=== PATIENT | female | born 1955 | race Caucasian/White ===

== ENCOUNTER 2019-07-30 02:41 | Observation (INO) ==
--- OUTSIDE RECORDS SUMMARY | 2019-07-30 02:44 | External Medical Summary | Continuity of Care Document ---
:1955 Author Name Holden Guerra Address Unavailable Unavailable , Care Team Providers Name Role Phone Unavailable Unavailable Unavailable Rachael Franz M.D. Unavailable [email or web address] Case Chris MATHIAS Unavailable [email or web address] Problems ESR Elevated (790.1) Encounter for cosmetic surgery (V50.1) (Z41.1) Abnormal blood chemistry (790.6) (R79.9) Crohn's disease (555.9) (K50.90) Allergies and Adverse Reactions No Known Drug Allergies (Allergy) Medications Multi-Vitamin TABS , M.DRayshawn Refills: 0 Calcium-D TABS , M.DRayshawn Refills: 0 Exldy-Et-Umsa TABS , M.DRayshawn Refills: 0 PEG-3350/Electrolytes 236 GM Oral Solution Reconstitut ed; TAKE DIRECTED. DO Jaswinder Anders Start: 23-Mar-2014 Quantity: 1 Refills: 0 Ibuprofen 800 MG Oral Tablet; TAKE 1 TABLET 3 TIMES DA LARRY WITH FOOD NEEDED. Charlie Franz Start: 10-Oct-2012 Quantity: 90 Refills: 0 diazePAM 5 MG Oral Tablet; TAKE 1 TABLET 3 TIMES DAILY NEEDED. Charlie Franz Start: 15-Jul-2012 Quantity: 1 90 EA Bottle Refills: 3 Remicade SOLCharlie Moreno Refills: 0 Procedures Procedures not documented Immunizations Immunizations not documented Social History - Smoking Status Never smoker Plan of Treatment Planned Observations Planned Goals not documented Results No Known Results Results not documented
[2019-07-30] MEDS ORDERED: SODIUM CHLORIDE 0.9% 500 ML IV SCH (03:00)
[2019-07-30 03:15] LABS: Basophils # (auto) 0.03 K/uL (0-0.2); Basophils % (auto) 0.4 %; Eosinophils # (auto) 0.07 K/uL (0-0.5); Eosinophils % (auto) 0.9 %; Hematocrit (blood only) 35.4 % (37-47); Hemoglobin 11.8 g/dL (12.0-16.0); Immature Granulocytes # (auto) 0.01 K/uL (0.00-0.02); Immature Granulocytes % (auto) 0.1 %; Lymphocytes # (auto) 2.22 K/uL (1.2-3.4); Lymphocytes % (auto) 28.3 %; Mean Corpuscular Hemoglobin 31.9 pg (25-34); Mean Corpuscular Hgb Conc 33.3 g/dL (32-36); Mean Corpuscular Volume 95.7 fL (80-100); Mean Platelet Volume 9.2 fL (7.4-10.4); Monocytes # (auto) 0.45 K/uL (0.11-0.59); Monocytes % (auto) 5.7 %; Neutrophils # (auto) 5.07 K/uL (1.4-6.5); Neutrophils % (auto) 64.6 %; Platelet Count 200 K/uL (130-400); RDW Coefficient of Variation 12.7 % (11.5-14.5); RDW Standard Deviation 43.5 fL (36.4-46.3); White Blood Count 7.85 K/uL (4.8-10.8)
[2019-07-30 03:23] LABS: Alanine Aminotransferase 38 U/L (12-78); Albumin Level 3.4 gm/dl (3.4-5.0); Aspartate Aminotransferase 15 U/L (15-37); Blood Urea Nitrogen 14 mg/dl (7-18); Calcium 8.7 mg/dl (8.5-10.1); Carbon Dioxide 29 mmol/L (21-32); Chloride 102 mmol/L (98-107); Est GFR (African American) 98.3; Est GFR (Non-African American) 84.8; Glucose 137 mg/dl (70-99); Lipase 89 U/L (73-393); Potassium 3.2 mmol/L (3.5-5.1); Sodium 141 mmol/L (136-145)
[2019-07-30 03:25] LABS: Alkaline Phosphatase 57 U/L (45-117); Bilirubin,Total 0.7 mg/dl (0.2-1); Globulin 3.5 gm/dl (2.5-4.0); Partial Thromboplastin Ratio 0.9; Partial Thromboplastin Time 23.2 Seconds (21.0-31.0); Prothrombin Time 10.3 Seconds (9.0-12.0); Total Protein 6.9 gm/dl (6.4-8.2)
[2019-07-30] MEDS ORDERED: ACETAMINOPHEN 1,000 MG/100 ML VIAL IV STA (05:04)
[2019-07-30] MEDS ORDERED: SODIUM CHLORIDE 0.9% 1000ML 1,000 ML IV SCH (05:15)
[2019-07-30] MEDS ORDERED: POTASSIUM CHLORIDE 20 MEQ/15 ML UDC PO STA (06:16)
[2019-07-30 07:57] LABS: Hematocrit (blood only) 31.5 % (37-47); Hemoglobin 10.4 g/dL (12.0-16.0)
--- NOTE | 2019-07-30 08:17 | Emergency Department Note ---
Entered by Dejon Gomes acting as a scribe for Lidia Norris DO History of Present Illness General Chief complaint: Rectal Bleed Stated complaint: RECTAL BLEEDING/SYNCOPE Time Seen by Provider: 07/30/19 02:43 Source: patient History of Present Illness Onset (ago): day(s) (last night) Location: abdomen (rectum) Pain Consistency: + other (persistent) Exacerbated By: + other (rectal bleeding) Associated symptoms: + other (Positive for syncope and chills. Negative for cramping/pain.) The patient is a 63 year old female who presents to the emergency department with complaints of persistent rectal bleeding beginning last night. The patient states that she had an EGD/colonoscopy performed yesterday. She notes that she had multiple polyps removed. She reports that she had a little bit of rectal bleeding at 2200. The patient states that she then went to the bathroom at 2320 and did not have any rectal bleeding. She notes that she then woke up at 0200 and saw bright red blood in the toilet when she went to the bathroom. She reports that she did not have any cramping/pain prior to going to the bathroom. The patient states that she then walked a few steps from the toilet and did not feel well and lost consciousness. Patient woke up spontaneously shortly thereafter, and called 911. She complains of chills after losing consciousness. Per EMS, the patient started getting hypotensive en route to the emergency department. An IV was placed and fluids started and patient's blood pressure came up. The patient notes that she has a history of Crohns disease. She repor ts that she does not take any blood thinners. No prior history of upper GI bleed. No history of peptic ulcer disease. Home Medications Home Medications Medication Instructions Recorded Confirmed Type Valium 5 mg PO HS PRN 07/30/19 07/30/19 History hydrochlorothiazide 12.5 mg PO DAILY 07/30/19 07/30/19 History mesalamine 3 tab PO DAILY 07/30/19 07/30/19 History omeprazole 20 mg PO DAILY 07/30/19 07/30/19 History Allergies Allergy/AdvReac Type Severity Reaction Status Date / Time No Known Allergies Allergy Verified 07/30/19 03:17 Past Med/Surg History Social History Preferred Language: Moroccan Communication Ability: Effective [employer] Required: No Beliefs That Will Affect Care: None Current Living Situation: Alone Other Information That Helps Us Care for You: No Feels Safe at Home: Yes Safety Concerns: Feels Safe At This Time Smoking Status: Former smoker Second Hand Exposure: No ; Hx Alcohol Use: Yes Alcohol type: beer Hx Substance Use: No Review of Systems See HPI for pertinent positives & negatives. and A total of 10 systems reviewed and were otherwise negative Physical Exam Vital Signs Vital Signs - 24 hr 07/30/19 02:50 07/30/19 03:00 07/30/19 03:10 Temperature 37.0 C Temperature Source Oral Sepsis Recent Fever Within 48 Hours No Sepsis Action Taken by Nursing No Action Required Pulse Rate 69 64 Pulse Rate from SpO2 Sensor 64 Respiratory Rate 17 20 Respiratory Effort / Characteristics Non-Labored Spontaneous Respiratory Depth Normal Blood Pressure 125/72 113/63 Blood Pressure Mean 89 79 Blood Pressure Position Lying Pulse Oximetry 98 97 Oxygen Delivery Method Room Air Room Air Room Air 07/30/19 03:30 07/30/19 04:00 07/30/19 04:30 Temperature Temperature Source Sepsis Recent Fever Within 48 Hours Sepsis Action Taken by Nursing Pulse Rate 78 67 69 Pulse Rate from SpO2 Sensor 77 68 70 Respiratory Rate 18 18 17 Respiratory Effort / Characteristics Respiratory Depth Blood Pressure 103/75 110/53 L 112/53 L Blood Pressure Mean 84 72 72 Blood Pressure Position Pulse Oximetry 98 97 97 Oxygen Delivery Method Room Air Room Air 07/30/19 05:00 07/30/19 05:30 Temperature Temperature Source Sepsis Recent Fever Within 48 Hours Sepsis Action Taken by Nursing Pulse Rate 73 80 Pulse Rate from SpO2 Sensor 74 78 Respiratory Rate 14 14 Respiratory Effort / Characteristics Respiratory Depth Blood Pressure 105/56 L 102/63 Blood Pressure Mean 72 76 Blood Pressure Position Pulse Oximetry 97 94 Oxygen Delivery Method GENERAL: alert, well appearing, well nourished, no distress, non-toxic EYE EXAM: normal conjunctiva, PERRL and EOM's grossly intact OROPHARYNX: no exudate, no erythema, lips, buccal mucosa, and tongue normal and mucous membranes are moist NECK: supple, no nuchal rigidity, no adenopathy, non-tender LUNGS: Clear to auscultation. Normal chest wall mechanics, no w/r/r HEART: no murmurs, S1 normal and S2 normal ABDOMEN: abdomen soft, non-tender, normo-active bowel sounds, no masses, no rebound or guarding. BACK: Back is symmetrical on inspection and there is no deformity, no midline tenderness, no CVA tenderness. SKIN: no rashes and no bruising UPPER EXTREMITIES: upper extremities are grossly normal. FROM, nml pulses b/l. LOWER EXTREMITIES: No pitting edema. FROM, nml pulses b/l. NEURO EXAM: Normal sensorium, cranial nerves II-XII grossly intact, normal speech, no gross weakness of arms, no gross weakness of legs. Course 0245: The patient was evaluated in room B2. A complete history and physical exam was performed. 0504: The patient had another episode of bright red bloody stool. No abdominal pain, no nausea vomiting, no fevers or chills. Patient he will dynamically stable at this time. Discussed all results with patient and my concern for recurrent episode of GI bleed in light of recent procedure. 0506: Upon reevaluation, the patient is stable. I discussed the findings and the treatment plan with the patient. She expresses agreement and understanding. [facility] The patient will be evaluated for further management. Consultations Consultation #1: I reviewed the patient's case with Dr. Villa - Hospitalist, [facility] [address]. He will evaluate the patient for further management. He will contact GI after his evaluation. Time: 05:06 Administered Medications Sodium Chloride (Nss 1000ml) 1,000 mls @ 125 mls/hr IV .Q8H [facility] Stop: 08/29/19 05:14 Last Admin: 07/30/19 05:28 Dose: 125 mls/hr Documented by: [id number] Discontinued Medications Sodium Chloride (Nss) 500 mls @ 999 mls/hr IV .Q31M ETIAN Stop: 07/30/19 03:30 Last Infusion: 07/30/19 04:06 Dose: 0 mls/hr Documented by: [id number] Admin: 07/30/19 03:04 Dose: 999 mls/hr Documented by: [id number] Acetaminophen (Ofirmev) 1,000 mg in 100 mls @ 400 mls/hr IV NOW STA Stop: 07/30/19 05:18 Last Infusion: 07/30/19 05:55 Dose: 0 mls/hr Documented by: [id number] Admin: 07/30/19 05:32 Dose: 400 mls/hr Documented by: [id number] Potassium Chloride (Tatiana Ciel Elix) 40 meq PO NOW STA Stop: 07/30/19 06:17 Last Admin: 07/30/19 07:03 Dose: 40 meq Documented by: [id number] Medical Decision Making Differential Diagnosis Differential diagnosis includes etiologies such as diverticulosis, AVM, coagulopathy, colitis, inflammatory bowel disease, malignancy, Louann-Hwang tear, esophagitis, peptic ulcer disease, variceal bleed, gastritis, epistaxis, fissure, hemorrhoids, as well as others were entertained. Medical Records Attestation: I reviewed the patient's medical records. Home Medications Current Medication List: was personally reviewed by me Laboratory Data Attestation: I reviewed the patient's lab results. Result diagrams: 07/30/19 07:43 07/30/19 02:52 Lab Results 07/30/19 07/30/19 07/30/19 Range/Units 02:52 02:52 02:52 WBC 7.85 (4.8-10.8) K/uL RBC 3.70 L (4.2-5.4) M/uL Hgb 11.8 L (12.0-16.0) g/dL Hct 35.4 L (37-47) % MCV 95.7 (80-100) fL MCH 31.9 (25-34) pg MCHC 33.3 (32-36) g/dL RDW Std Deviation 43.5 (36.4-46.3) fL RDW Coeff of Rosa 12.7 (11.5-14.5) % Plt Count 200 (130-400) K/uL MPV 9.2 (7.4-10.4) fL Immature Gran % (Auto) 0.1 % Neut % (Auto) 64.6 % Lymph % (Auto) 28.3 % [place] % (Auto) 5.7 % Eos % (Auto) 0.9 % Baso % (Auto) 0.4 % Immature Gran # (Auto) 0.01 (0.00-0.02) K/uL Neut # (Auto) 5.07 (1.4-6.5) K/uL Lymph # (Auto) 2.22 (1.2-3.4) K/uL [place] # (Auto) 0.45 (0.11-0.59) K/uL Eos # (Auto) 0.07 (0-0.5) K/uL Baso # (Auto) 0.03 (0-0.2) K/uL PT 10.3 (9.0-12.0) Seconds INR 1.0 (0.9-1.1) APTT 23.2 (21.0-31.0) Seconds PTT Ratio 0.9 Sodium 141 (136-145) mmol/L Potassium 3.2 L (3.5-5.1) mmol/L Chloride 102 (98-107) mmol/L Carbon Dioxide 29 (21-32) mmol/L Anion Gap 10.0 (3-11) BUN 14 (7-18) mg/dl Creatinine 0.75 (0.6-1.2) mg/dl Est Cr Clr Drug Dosing Not Reportable Est GFR ( Amer) 98.3 Est GFR (Non-Af Amer) 84.8 BUN/Creatinine Ratio 18.0 (10-20) Glucose 137 H (70-99) mg/dl Calcium 8.7 (8.5-10.1) mg/dl Total Bilirubin 0.7 (0.2-1) mg/dl AST 15 (15-37) U/L ALT 38 (12-78) U/L Alkaline Phosphatase 57 (45-117) U/L Total Protein 6.9 (6.4-8.2) gm/dl Albumin 3.4 (3.4-5.0) gm/dl Globulin 3.5 (2.5-4.0) gm/dl Albumin/Globulin Ratio 1.0 (0.9-2) Lipase 89 (73-393) U/L Blood Type Antibody Screen 07/30/19 Range/Units 02:52 WBC (4.8-10.8) K/uL RBC (4.2-5.4) M/uL Hgb (12.0-16.0) g/dL Hct (37-47) % MCV (80-100) fL MCH (25-34) pg MCHC (32-36) g/dL RDW Std Deviation (36.4-46.3) fL RDW Coeff of Rosa (11.5-14.5) % Plt Count (130-400) K/uL MPV (7.4-10.4) fL Immature Gran % (Auto) % Neut % (Auto) % Lymph % (Auto) % [place] % (Auto) % Eos % (Auto) % Baso % (Auto) % Immature Gran # (Auto) (0.00-0.02) K/uL Neut # (Auto) (1.4-6.5) K/uL Lymph # (Auto) (1.2-3.4) K/uL [place] # (Auto) (0.11-0.59) K/uL Eos # (Auto) (0-0.5) K/uL Baso # (Auto) (0-0.2) K/uL PT (9.0-12.0) Seconds INR (0.9-1.1) APTT (21.0-31.0) Seconds PTT Ratio Sodium (136-145) mmol/L Potassium (3.5-5.1) mmol/L Chloride (98-107) mmol/L Carbon Dioxide (21-32) mmol/L Anion Gap (3-11) BUN (7-18) mg/dl Creatinine (0.6-1.2) mg/dl Est Cr Clr Drug Dosing Est GFR ( Amer) Est GFR (Non-Af Amer) BUN/Creatinine Ratio (10-20) Glucose (70-99) mg/dl Calcium (8.5-10.1) mg/dl Total Bilirubin (0.2-1) mg/dl AST (15-37) U/L ALT (12-78) U/L Alkaline Phosphatase (45-117) U/L Total Protein (6.4-8.2) gm/dl Albumin (3.4-5.0) gm/dl Globulin (2.5-4.0) gm/dl Albumin/Globulin Ratio (0.9-2) Lipase (73-393) U/L Blood Type O Positive Antibody Screen NEGATIVE ECG Data Attestation: I personally reviewed and interpreted this ECG as follows: Indication: syncope Rate (beats per minute): 74 Rhythm: sinus rhythm Findings: no ST depression and no ST elevation Comparison ECG Date: from (10/26/2015) Change: the following changes noted (Compared to prior, prolonged QT appears worse.) Additional Comments: Normal axis, prolonged QTC. Blood Pressure Blood Pressure Findings: Normal blood pressure Blood Pressure Disposition: did not require urgent referral MDM Narrative Patient well-appearing here despite complaints and events at home. Patient with recurrent GI bleed status post colonoscopy yesterday with removal of 2 polyps. Patient not anticoagulated, no antiplatelet therapy. Patient does have prior history of Crohn's disease and is on mesalamine. Patient with no abdominal pain at this time, no nausea vomiting, no dizziness, no fevers chills. I feel the syncopal event after noticing the bright red blood per rectum at home was more likely vasovagal. Patient H&H stable. I do not suspect other active bleeding at this time. Patient monitored here for several hours and then had a recurrent episode here which prompted discussion for additional inpatient monitoring and evaluation. Patient was made aware of all results and was in agreement with plan. Case discussed with hospitalist, and I offered contact GI. They would like to see and evaluate the patient first and then contact GI themselves. Patient had no recurrent dizziness or near syncope. Patient did ambulate to the bathroom under her own power. I do not suspect occult cardiac or infectious etiology of her syncope, I do not suspect occult neurologic pathology. I do not suspect upper GI bleed. Impression & Plan GI bleed, Status post colonoscopy, Abdominal pain, lower, Syncope Discharge Plan Visit Data *Final* Discharge Date/Time: 07/30/19 07:10 Chief Complaint: Rectal Bleed Stated Complaint: RECTAL BLEEDING/SYNCOPE ED Provider: Lidia Norris Discharge Problem: GI bleed, Status post colonoscopy, Abdominal pain, lower, Syncope Patient Disposition: Admitted As Inpatient Discharge Instructions Interventions: ED Discharge Assessment Last Done: 07/30/19 07:10 Discharge Problem: GI bleed Qualifiers: GI bleed type/associated pathology: unspecified gastrointestinal hemorrhage type Qualified Code(s): K92.2 - Gastrointestinal hemorrhage, unspecified Syncope Qualifiers: Syncope type: unspecified Qualified Code(s): R55 - Syncope and collapse The scribe's documentation has been prepared under my direction and personally reviewed by me in its entirety. I confirm that the note above accurately reflects all work, treatment, procedures, and medical decision making performed by me.
[2019-07-30] MEDS ORDERED: ACETAMINOPHEN 325 MG TAB PO PRN (08:24)
[2019-07-30] MEDS ORDERED: diazePAM 5 MG TABLET PO PRN (08:24)
[2019-07-30] MEDS ORDERED: NITROGLYCERIN SL 0.4 MG/TAB TAB SL PRN (08:24)
[2019-07-30] MEDS ORDERED: MULTI-VITAMIN INFUSION 10 ML, THIAMINE HCL 100 MG, FOLIC ACID 1 MG in SODIUM CHLORIDE 0... IV ONE (08:45)
[2019-07-30] MEDS ORDERED: hydroCHLOROthiazide 25 MG TAB PO SCH (09:00)
--- NOTE | 2019-07-30 09:11 | History and Physical Report ---
DATE OF ADMISSION: 07/30/2019 CHIEF COMPLAINT: Rectal bleed. HISTORY OF PRESENT ILLNESS: This is a 63-year-old female with past medical history significant for Crohn's disease, not had a flare in the last 30 years; was on Remicade in the past, but currently on mesalamine. She also has history of colon cancer, status post right hemicolectomy couple of years ago and she gets frequent screenings with colonoscopies. She had a colonoscopy about 1 or 1-1/2 months ago and the biopsy showed some precancerous polyps, advised for 6 month followup, but she decided to go early and she had an EGD and colonoscopy done yesterday> Egd showed small diverticulum which was dilated, but otherwise unremarkable. Colonoscopy showed multiple polyps which were resected and she was discharged home,yesterday afternoon. In the evening, she had a small blood per rectum thereafter she had some small clots, then she went to sleep, then in the middle of the night around 2:00 p.m., she woke up with large bloody bowel movement, and also she had an syncopal episode when she collapsed. Friend in the house helped her. No seizure activity. Then she decided to come to the ER. In the ER, her hemodynamics are stable. She did fine and thought the bleeding has stopped,and planned discharge her home. She had then had another episode of bright red per rectum, so we are called for admission. Currently resting comfortably and hemodynamically stable. Hemoglobin is 11.8. She has mild abdominal discomfort. Denies any nausea, vomiting. No chest pain or shortness of breath. No cough. During last episode of bleeding in the house, she suddenly passed out. Her friend was in the house. He helped her, not significantly on the floor for a long time. She came back and there was no seizure activity, no biting of tongue and in the EMS also, her blood pressure running on the lower side. Currently hemodynamically stable. Denies any headache or blurred vision. No earache, no runny nose, no sore throat, no difficulty swallowing. Ambulates okay. Normal bladder movements. No rash. ALLERGIES: No known drug allergies. PAST MEDICAL HISTORY: As mentioned above. PAST SURGICAL HISTORY: Multiple colonoscopies, laparoscopic partial colectomy. MEDICATIONS: The patient is on omeprazole 20 mg p.o. daily, mesalamine 1.2 grams 3 tablets daily, Valium 5 mg p.o. b.i.d., aspirin, hydrochlorothiazide 12.5 mg p.o. daily, Maalox p.r.n. FAMILY HISTORY: Significant for mother had breast cancer, diverticulitis. Father had heart problems, mitral valve repair. Brother has hypertension. SOCIAL HISTORY: , currently living alone. Quit smoking in 1990. Smoked 1.5 packs a day. Alcohol, drinks daily. No drug use. REVIEW OF SYMPTOMS: As per HPI. Rest of review of systems negative. PHYSICAL EXAMINATION: GENERAL: The patient is of moderate build, not in acute distress. VITAL SIGNS: Temperature 37, pulse 80, respiratory rate 14, blood pressure 102/63, oxygen 94% room air. HEENT: No pallor, no icterus. Pupils equal, round, reactive to light. NECK: No lymphadenopathy, no carotid bruit. CARDIOVASCULAR: S1, S2 heard, regular rate and rhythm, no murmur, no gallop. RESPIRATORY SYSTEM: Normal AP diameter. No accessory muscle use. No wheezing, no crackles. ABDOMEN: Soft, bowel sounds present. Nontender, nondistended. CENTRAL NERVOUS SYSTEM: Cranial nerves II-XII grossly nonfocal. EXTREMITIES: No edema, no erythema. LABORATORY DATA: WBC 7.5, hemoglobin 11.8, hematocrit 35.4, platelets 200. PT 10.9, INR 1, APTT 23.2. Sodium 140, potassium 3.2, chloride 102, bicarbonate 29, BUN 14, creatinine 0.75. Serum glucose 137, calcium 8.7, total bilirubin 0.7, AST 15, ALT 38, alkaline phosphatase 57, lipase 89. Stool occult blood positive. EKG: Normal sinus rhythm with a rate of 74, nonspecific ST abnormalities, prolonged QT. ASSESSMENT AND PLAN: This is a 63-year-old female who had a colonoscopy with polypectomy done yesterday, presents with rectal bleed. 1. Bright red per rectum post-colonoscopy with polypectomy. She has history of colon cancer 2 years ago s/p hemicolectomy . Has frequent colonoscopies. Recent colonoscopy with biopsy showed some precancerous polyps for which she had a repeat colonoscopy yesterday with multiple polyps taken out, comes with rectal bleed. Hemoglobin stable at 11.8. We will do H&H q.6 hours. Keep her n.p.o., IV fluids and consult GI for further plan . Bowel prep per GI if needed. 2. Syncope. She had passed out when she had large bloody bowel movement at home, mostly vasovagal. We will monitor in tele floor. 3. Crohn's disease. Continue home mesalamine. 4. Gerd. Continue omeprazole. 4. Deep venous thrombosis prophylaxis, sequential compression devices. DISPOSITION: Admit to tele floor. Expect discharge home and follow with family doctor. Level 1 full code. Also got blood consent form. MTDD
--- NOTE | 2019-07-30 09:38 | Hospitalist Progress Note ---
Date of Service July 30, 2019 Subjective Patient drinks alcohol 4-6 beers a day. Says did not drink since last Sunday. Sh akua says she will not go through withdrawal and doesn't want any meds to help with withdrawal. Will give banana bag. Thiamine and mvi daily. Monitor for any withdrawal. Also on EKG Qt is prolonged. Will avoid qt prolonging drugs. Hypokalemia. Will replace potassium. Follow Magnesium levels. Results & Data Vital Signs (Past 12 Hours) Vital Signs Temp Pulse Resp BP BP Pulse Ox 07/30/19 08:30 75 07/30/19 07:37 36.8 C 16 101/64 97 07/30/19 06:30 72 17 95/50 L 95 07/30/19 06:00 72 16 90/49 L 97 07/30/19 05:30 80 14 102/63 94 07/30/19 05:00 73 14 105/56 L 97 07/30/19 04:30 69 17 112/53 L 97 07/30/19 04:00 67 18 110/53 L 97 07/30/19 03:30 78 18 103/75 98 07/30/19 03:00 64 20 113/63 97 07/30/19 02:50 37.0 C 69 17 125/72 98
[2019-07-30 09:41] LABS: Basophils # (auto) 0.03 K/uL (0-0.2); Basophils % (auto) 0.5 %; Eosinophils # (auto) 0.04 K/uL (0-0.5); Eosinophils % (auto) 0.6 %; Immature Granulocytes # (auto) 0.01 K/uL (0.00-0.02); Immature Granulocytes % (auto) 0.2 %; Lymphocytes % (auto) 18.2 %; Mean Platelet Volume 9.3 fL (7.4-10.4); Monocytes # (auto) 0.29 K/uL (0.11-0.59); Monocytes % (auto) 4.4 %; Neutrophils # (auto) 5.03 K/uL (1.4-6.5); Neutrophils % (auto) 76.1 %; Platelet Count 191 K/uL (130-400); RDW Coefficient of Variation 12.7 % (11.5-14.5); RDW Standard Deviation 43.8 fL (36.4-46.3); Red Blood Count 3.22 M/uL (4.2-5.4)
[2019-07-30] MEDS: THIAMINE HCL 100 MG TAB PO SCH (09:54)
[2019-07-30] MEDS: PANTOprazole 40 MG TAB PO SCH (09:54)
[2019-07-30] MEDS: CEROVITE ADV FORMULA TAB PO SCH (09:54)
--- NOTE | 2019-07-30 10:13 | Gastrointestinal Consultation ---
Date of Consultation July 30, 2019 Assessment & Plan (1) Status post colonoscopy: 63 year old female w/ history of Crohn's disease on Delzicol, status post laparoscopic right hemicolectomy on 09/22/2017 for ascending colon cancer who presents through the ED for evaluation of rectal bleeding, syncopal event at home following colonoscopy w/ polypectomy 07/29/19 Her vitals have remained stable, HGB this AM 10.4 w/ persistent episodes of rectal bleeding. - Clear liquid today - Start go-lytely prep - Trend HGB - Monitor and document all GI out - Transfuse PRN - NPO after midnight - Colonoscopy 07/31 for persistent bleeding - Consider abdominal imaging in event pt develops any abd pain Thank you for allowing us to participate in the care of this patient. Please call with any acute changes, questions or concerns. Please see addendum below with additional recommendation from my supervising physician. Present on Admission?: Yes Supervising Physician Co-Signing Physician Notes I have seen and examined the patient and discussed the management with GUSTAVO Chance. 63 yo fm with prior history of crohn's, malignant polyp in 2016 leading to hemicolectomy in 2016, then receveing surveillance colonoscopies by [facility] (Dr. Rivera). Admitted overnite post colonoscopy done at [facility] on 07/29/19 with reported rectal bleeding. Slightly hypotensive while sleeping, but otherwise stable. Her hgb has dropped by 1 gram. Reports of passing blood intermittently. Check Hgb this afternoon- transfuse if further 1-2 gram drop in hgb. Prep today as this can cause vasoconstricition and will help with visualization for colonoscopy likely tomorrow if she continues to remain hemodynamically stable. History of Present Illness Reason for Consultation: rectal bleeding Requesting Physician: Chantal Attending Physician: Jos Cornejo MD History of Present Illness 63 year old female with history of Crohn's disease on Delzicol, status post laparoscopic right hemicolectomy on 09/22/2017 for ascending colon cancer who presents through the ED for evaluation of rectal bleeding, syncopal event at home - GI asked to evaluate. Pt was seen and evaluated, chart reviewed. Notes she had a colonosocy in June for routine colon CA screening. Was noted to have a lot of polyps. At that time, numerous biopsies were taken w/ report of h yperplastic polyps an adenomatous polyps and it was suggested she undergo a repeat colonoscopy for polypectomy within 6 months for removal. she notes following colonoscopy yesterday she felt well. Went home, ate regular dinner. Around 10pm she went to have a BM and noted some BRB on the toilet tissue and in the toilet bowl. She went to bed as she felt well but asked a friend to stay over. She woke up around 0200 w/ sudden urge to have a BM and noted a lot of BRB w/ some clots at this time. Following episode she felt lighthead, dizzy and had a syncopal event witnessed by friend. In the ED, she was hemodynamically stable but admitted following persistent episdoes of rectal bleeding. Colonoscopy 2019: Patent end-to-side ileo-colonic anastomosis, characterized by healthy appearing mucosa. Normal mucosa in the entire examined colon. Biopsied. Multiple 6 to 15 mm polyps in the ascending colon, removedwith a hot snare. Incomplete resection. Resected tissue retrieved. Clip (MR conditional) was placed. Multiple 8 to 15 mm polyps in the transverse colon,removed with a hot snare. Incomplete resection. Resected tissue retrieved. Clip (MR conditional) was placed. Multiple 5 to 10 mm polyps in the descending colon, removed with a hot snare. Incomplete resection. Resectedtissue retrieved.Internal hemorrhoids. The examination was otherwise normal EGD 2019: Normal upper third of esophagus and middle third of esophagus. Mild Schatzki ring. Dilated to 54 Fr today. Small hiatal hernia. Normal gastric fundus, gastric body, incisura and antrum.Normal examined duodenum. No specimens collected. Colonoscopy 2019: Patent end-to-side ileo-colonic anastomosis, characterized by healthy appearing mucosa. Pseudopolyps in the descending colon and in the transverse colon. Biopsied. Normal mucosa in the recto-sigmoid colon. Biopsied.Internal hemorrhoids. The examination was otherwise normal. Colonoscopy 2018: Patent end-to-side ileo-colonic anastomosis, characterized by healthy appearing mucosa. Fluid aspiration performed.Pseudopolyps in the descending colon and in the transverse colon. [Resected]. Biopsied.Normal mucosa in the recto-sigmoid colon. Biopsied. Internal hemorrhoids. Colonoscopy 2017: The examined portion of the ileum was normal.Suspicious appearing ulcer in the ascending colon. Biopsied. Tattooed. Crohn's disease. Inflammation was found in the colon. This was graded as Matts grade 2 (mild granularity of the mucosa with mild contact bleeding). The findings are unchanged compared to previous examinations. Biopsied.Internal hemorrhoids. Colonoscopy 2016: The examined portion of the ileum was normal. Pseudopolyps in the entire examined colon. Normal mucosa in the entire examined colon. Biopsied. Fluid aspiration performed.Internal hemorrhoids. The examination was otherwise normal. Allergies Allergy/AdvReac Type Severity Reaction Status Date / Time No Known Allergies Allergy Verified 07/30/19 03:17 Home Medications Home Medications Medication Instructions Recorded Confirmed Type Valium 5 mg PO HS PRN 07/30/19 07/30/19 History hydrochlorothiazide 12.5 mg PO DAILY 07/30/19 07/30/19 History mesalamine 3 tab PO DAILY 07/30/19 07/30/19 History omeprazole 20 mg PO DAILY 07/30/19 07/30/19 History Patient History Social History Preferred Language: Romanian Communication Ability: Effective Respiratory Care Instructor Required: No Beliefs That Will Affect Care: None Current Living Situation: Alone Other Information That Helps Us Care for You: No Feels Safe at Home: Yes Safety Concerns: Feels Safe At This Time Smoking Status: Former smoker Second Hand Exposure: No ; Hx Alcohol Use: Yes Alcohol type: beer Hx Substance Use: No Review of Systems Constitutional: no fever and no chills Respiratory: no cough and no dyspnea Cardiovascular: no chest pain and no radiating jaw, neck or arm pain Gastrointestinal: + cramping, + change in bowel habits and + blood in stools; no abdominal pain, no early satiety, no vomiting, no coffee ground emesis, no hematemesis and no melena Physical Exam Constitutional: well developed and well nourished; no acute distress Respiratory: normal respiratory effort, lungs clear to auscultation Cardiovascular: RRR, no murmur, no edema Gastrointestinal (Abdomen): normal bowel sounds, soft, nontender, no hepatosplenomegaly Skin: no rashes, warm and dry Results & Data Vital Signs (Past 12 Hours) Vital Signs Temp Pulse Resp BP BP Pulse Ox 07/30/19 08:30 75 07/30/19 07:37 36.8 C 16 101/64 97 07/30/19 06:30 72 17 95/50 L 95 07/30/19 06:00 72 16 90/49 L 97 07/30/19 05:30 80 14 102/63 94 07/30/19 05:00 73 14 105/56 L 97 07/30/19 04:30 69 17 112/53 L 97 07/30/19 04:00 67 18 110/53 L 97 07/30/19 03:30 78 18 103/75 98 07/30/19 03:00 64 20 113/63 97 07/30/19 02:50 37.0 C 69 17 125/72 98 Laboratory Results 07/30/19 07/30/19 07/30/19 Range/Units Unknown 07:43 07:02 WBC 6.60 (4.8-10.8) K/uL RBC 3.22 L (4.2-5.4) M/uL Hgb 10.4 L (12.0-16.0) g/dL Hct 31.5 L (37-47) % MCV Pending (80-100) fL MCH 32.0 (25-34) pg MCHC Pending (32-36) g/dL RDW Std Deviation 43.8 (36.4-46.3) fL RDW Coeff of Rosa 12.7 (11.5-14.5) % Plt Count 191 (130-400) K/uL MPV 9.3 (7.4-10.4) fL Immature Gran % (Auto) 0.2 % Neut % (Auto) 76.1 % Lymph % (Auto) 18.2 % [place] % (Auto) 4.4 % Eos % (Auto) 0.6 % Baso % (Auto) 0.5 % Immature Gran # (Auto) 0.01 (0.00-0.02) K/uL Neut # (Auto) 5.03 (1.4-6.5) K/uL Lymph # (Auto) 1.20 (1.2-3.4) K/uL [place] # (Auto) 0.29 (0.11-0.59) K/uL Eos # (Auto) 0.04 (0-0.5) K/uL Baso # (Auto) 0.03 (0-0.2) K/uL PT (9.0-12.0) Seconds INR (0.9-1.1) APTT (21.0-31.0) Seconds PTT Ratio Sodium (136-145) mmol/L Potassium (3.5-5.1) mmol/L Chloride (98-107) mmol/L Carbon Dioxide (21-32) mmol/L Anion Gap (3-11) BUN (7-18) mg/dl Creatinine (0.6-1.2) mg/dl Est Cr Clr Drug Dosing Est GFR ( Amer) Est GFR (Non-Af Amer) BUN/Creatinine Ratio (10-20) Glucose (70-99) mg/dl Calcium (8.5-10.1) mg/dl Magnesium 2.0 (1.8-2.4) mg/dl Total Bilirubin (0.2-1) mg/dl AST (15-37) U/L ALT (12-78) U/L Alkaline Phosphatase (45-117) U/L Total Protein (6.4-8.2) gm/dl Albumin (3.4-5.0) gm/dl Globulin (2.5-4.0) gm/dl Albumin/Globulin Ratio (0.9-2) Lipase (73-393) U/L POC Stool Occult Blood Positive A (Negative) Blood Type Antibody Screen 07/30/19 07/30/19 07/30/19 Range/Units 02:52 02:52 02:52 WBC (4.8-10.8) K/uL RBC (4.2-5.4) M/uL Hgb (12.0-16.0) g/dL Hct (37-47) % MCV (80-100) fL MCH (25-34) pg MCHC (32-36) g/dL RDW Std Deviation (36.4-46.3) fL RDW Coeff of Rosa (11.5-14.5) % Plt Count (130-400) K/uL MPV (7.4-10.4) fL Immature Gran % (Auto) % Neut % (Auto) % Lymph % (Auto) % [place] % (Auto) % Eos % (Auto) % Baso % (Auto) % Immature Gran # (Auto) (0.00-0.02) K/uL Neut # (Auto) (1.4-6.5) K/uL Lymph # (Auto) (1.2-3.4) K/uL [place] # (Auto) (0.11-0.59) K/uL Eos # (Auto) (0-0.5) K/uL Baso # (Auto) (0-0.2) K/uL PT 10.3 (9.0-12.0) Seconds INR 1.0 (0.9-1.1) APTT 23.2 (21.0-31.0) Seconds PTT Ratio 0.9 Sodium 141 (136-145) mmol/L Potassium 3.2 L (3.5-5.1) mmol/L Chloride 102 (98-107) mmol/L Carbon Dioxide 29 (21-32) mmol/L Anion Gap 10.0 (3-11) BUN 14 (7-18) mg/dl Creatinine 0.75 (0.6-1.2) mg/dl Est Cr Clr Drug Dosing Not Reportable Est GFR ( Amer) 98.3 Est GFR (Non-Af Amer) 84.8 BUN/Creatinine Ratio 18.0 (10-20) Glucose 137 H (70-99) mg/dl Calcium 8.7 (8.5-10.1) mg/dl Magnesium (1.8-2.4) mg/dl Total Bilirubin 0.7 (0.2-1) mg/dl AST 15 (15-37) U/L ALT 38 (12-78) U/L Alkaline Phosphatase 57 (45-117) U/L Total Protein 6.9 (6.4-8.2) gm/dl Albumin 3.4 (3.4-5.0) gm/dl Globulin 3.5 (2.5-4.0) gm/dl Albumin/Globulin Ratio 1.0 (0.9-2) Lipase 89 (73-393) U/L POC Stool Occult Blood (Negative) Blood Type O Positive Antibody Screen NEGATIVE 07/30/19 Range/Units 02:52 WBC 7.85 (4.8-10.8) K/uL RBC 3.70 L (4.2-5.4) M/uL Hgb 11.8 L (12.0-16.0) g/dL Hct 35.4 L (37-47) % MCV 95.7 (80-100) fL MCH 31.9 (25-34) pg MCHC 33.3 (32-36) g/dL RDW Std Deviation 43.5 (36.4-46.3) fL RDW Coeff of Rosa 12.7 (11.5-14.5) % Plt Count 200 (130-400) K/uL MPV 9.2 (7.4-10.4) fL Immature Gran % (Auto) 0.1 % Neut % (Auto) 64.6 % Lymph % (Auto) 28.3 % [place] % (Auto) 5.7 % Eos % (Auto) 0.9 % Baso % (Auto) 0.4 % Immature Gran # (Auto) 0.01 (0.00-0.02) K/uL Neut # (Auto) 5.07 (1.4-6.5) K/uL Lymph # (Auto) 2.22 (1.2-3.4) K/uL [place] # (Auto) 0.45 (0.11-0.59) K/uL Eos # (Auto) 0.07 (0-0.5) K/uL Baso # (Auto) 0.03 (0-0.2) K/uL PT (9.0-12.0) Seconds INR (0.9-1.1) APTT (21.0-31.0) Seconds PTT Ratio Sodium (136-145) mmol/L Potassium (3.5-5.1) mmol/L Chloride (98-107) mmol/L Carbon Dioxide (21-32) mmol/L Anion Gap (3-11) BUN (7-18) mg/dl Creatinine (0.6-1.2) mg/dl Est Cr Clr Drug Dosing Est GFR ( Amer) Est GFR (Non-Af Amer) BUN/Creatinine Ratio (10-20) Glucose (70-99) mg/dl Calcium (8.5-10.1) mg/dl Magnesium (1.8-2.4) mg/dl Total Bilirubin (0.2-1) mg/dl AST (15-37) U/L ALT (12-78) U/L Alkaline Phosphatase (45-117) U/L Total Protein (6.4-8.2) gm/dl Albumin (3.4-5.0) gm/dl Globulin (2.5-4.0) gm/dl Albumin/Globulin Ratio (0.9-2) Lipase (73-393) U/L POC Stool Occult Blood (Negative) Blood Type Antibody Screen
[2019-07-30] MEDS: MESALAMINE 400 MG CAPDR PO SCH ×3 (11:25→20:09)
[2019-07-30] MEDS ORDERED: LAVAGE SOLUTION 4000ML PO ONE (11:30)
[2019-07-30 11:41] LABS: Hematocrit (blood only) 30.1 % (37-47); Hemoglobin 9.8 g/dL (12.0-16.0)
[2019-07-30] MEDS ORDERED: LORazepam 0.5 MG/1 ML VIAL IV PRN (12:08)
[2019-07-30] MEDS: SODIUM CHLORIDE 0.9% 1000ML 1,000 ML IV SCH ×2 (13:10→16:28)
[2019-07-30 13:40] LABS: Hematocrit (blood only) 29.1 % (37-47); Hemoglobin 9.7 g/dL (12.0-16.0)
[2019-07-30 14:18] LABS: Mean Corpuscular Volume 94.3 fL (80-100)
--- NOTE | 2019-07-30 16:15 | Hospitalist Progress Note ---
Date of Service July 30, 2019 Assessment & Plan (1) GI bleed: ASSESSMENT AND PLAN: This is a 63-year-old female who had a colonoscopy with polypectomy done yesterday, presents with rectal bleed. 1. Possible GI bleed she has history of colon cancer 2 years ago s/p hemicolectomy . Recent colonoscopy with biopsy showed some precancerous polyps for which she had a repeat colonoscopy yesterday with multiple polyps taken out, comes with rectal bleed. H Hemoglobin decreased from 11.8-9.7 N.p.o., IV fluids, colonoscopy planned for tomorrow Monitor H&H 6 hours Discussed with GI service 2. Syncope. She had passed out when she had large bloody bowel movement at home, mostly vasovagal. Monitor closely telemetry unit 3. Crohn's disease. Continue home mesalamine. 4. Gerd. Continue omeprazole. 4. Deep venous thrombosis prophylaxis - sequential compression devices in light of GI bleed DISPOSITION: Pending Anticipate discharge to home medically stable Subjective Follow-up for GI bleed Seen resting in bed, comfortable, not in distress States she has had 4 bowel movements so far since this morning, still reporting dark red stools Has mild lower abdominal discomfort, no nausea Denies chest pain, shortness of breath, palpitations, dizziness No other symptoms Review of Systems Review of Systems: All systems reviewed & are unremarkable except as noted in HPI & below Physical Exam Physical Exam: General- oriented x 3, not in distress, speaks in sentences with no effort or accessory muscle use Eyes- anicteric Neck- no JVD Lungs- clear breath sounds bilaterally, no rales/wheezes Heart- normal rate, regular rhythm; no murmurs Abdomen- normal bowel sounds, nondistended, soft, nontender Extremities- no pretibial edema, no calf tenderness Neuro- alert, oriented x 3; no gross focal neurologic deficits Skin- warm & dry Results & Data Vital Signs (Past 12 Hours) Vital Signs Temp Pulse Pulse Resp BP BP Pulse Ox 07/30/19 15:18 36.9 C 66 22 108/57 L 95 07/30/19 14:53 74 07/30/19 12:21 36.7 C 77 20 121/75 96 07/30/19 08:30 75 07/30/19 07:37 36.8 C 16 101/64 97 07/30/19 06:30 72 17 95/50 L 95 07/30/19 06:00 72 16 90/49 L 97 07/30/19 05:30 80 14 102/63 94 07/30/19 05:00 73 14 105/56 L 97 07/30/19 04:30 69 17 112/53 L 97 Laboratory Results Laboratory Results - last 24 hr 07/30/19 07/30/19 07/30/19 02:52 02:52 02:52 WBC 7.85 RBC 3.70 L Hgb 11.8 L Hct 35.4 L MCV 95.7 MCH 31.9 MCHC 33.3 RDW Std Deviation 43.5 RDW Coeff of Rosa 12.7 Plt Count 200 MPV 9.2 Immature Gran % (Auto) 0.1 Neut % (Auto) 64.6 Lymph % (Auto) 28.3 [place] % (Auto) 5.7 Eos % (Auto) 0.9 Baso % (Auto) 0.4 Immature Gran # (Auto) 0.01 Neut # (Auto) 5.07 Lymph # (Auto) 2.22 [place] # (Auto) 0.45 Eos # (Auto) 0.07 Baso # (Auto) 0.03 PT 10.3 INR 1.0 APTT 23.2 PTT Ratio 0.9 Sodium 141 Potassium 3.2 L Chloride 102 Carbon Dioxide 29 Anion Gap 10.0 BUN 14 Creatinine 0.75 Est Cr Clr Drug Dosing Not Reportable Est GFR ( Amer) 98.3 Est GFR (Non-Af Amer) 84.8 BUN/Creatinine Ratio 18.0 Glucose 137 H Calcium 8.7 Magnesium Total Bilirubin 0.7 AST 15 ALT 38 Alkaline Phosphatase 57 Total Protein 6.9 Albumin 3.4 Globulin 3.5 Albumin/Globulin Ratio 1.0 Lipase 89 Folate POC Stool Occult Blood Blood Type Antibody Screen 07/30/19 07/30/19 07/30/19 02:52 07:02 07:43 WBC 6.60 RBC 3.22 L Hgb 10.4 L Hct 31.5 L MCV 94.3 MCH 32.0 MCHC 33.0 RDW Std Deviation 43.8 RDW Coeff of Rosa 12.7 Plt Count 191 MPV 9.3 Immature Gran % (Auto) 0.2 Neut % (Auto) 76.1 Lymph % (Auto) 18.2 [place] % (Auto) 4.4 Eos % (Auto) 0.6 Baso % (Auto) 0.5 Immature Gran # (Auto) 0.01 Neut # (Auto) 5.03 Lymph # (Auto) 1.20 [place] # (Auto) 0.29 Eos # (Auto) 0.04 Baso # (Auto) 0.03 PT INR APTT PTT Ratio Sodium Potassium Chloride Carbon Dioxide Anion Gap BUN Creatinine Est Cr Clr Drug Dosing Est GFR ( Amer) Est GFR (Non-Af Amer) BUN/Creatinine Ratio Glucose Calcium Magnesium 2.0 Total Bilirubin AST ALT Alkaline Phosphatase Total Protein Albumin Globulin Albumin/Globulin Ratio Lipase Folate POC Stool Occult Blood Blood Type O Positive Antibody Screen NEGATIVE 07/30/19 07/30/19 07/30/19 11:27 13:33 13:33 WBC RBC Hgb 9.8 L 9.7 L Hct 30.1 L 29.1 L MCV MCH MCHC RDW Std Deviation RDW Coeff of Rosa Plt Count MPV Immature Gran % (Auto) Neut % (Auto) Lymph % (Auto) [place] % (Auto) Eos % (Auto) Baso % (Auto) Immature Gran # (Auto) Neut # (Auto) Lymph # (Auto) [place] # (Auto) Eos # (Auto) Baso # (Auto) PT INR APTT PTT Ratio Sodium Potassium Chloride Carbon Dioxide Anion Gap BUN Creatinine Est Cr Clr Drug Dosing Est GFR ( Amer) Est GFR (Non-Af Amer) BUN/Creatinine Ratio Glucose Calcium Magnesium Total Bilirubin AST ALT Alkaline Phosphatase Total Protein Albumin Globulin Albumin/Globulin Ratio Lipase Folate > 24.00 POC Stool Occult Blood Blood Type Antibody Screen 07/30/19 07/30/19 13:33 Unknown WBC RBC Hgb Hct MCV MCH MCHC RDW Std Deviation RDW Coeff of Rosa Plt Count MPV Immature Gran % (Auto) Neut % (Auto) Lymph % (Auto) [place] % (Auto) Eos % (Auto) Baso % (Auto) Immature Gran # (Auto) Neut # (Auto) Lymph # (Auto) [place] # (Auto) Eos # (Auto) Baso # (Auto) PT INR APTT PTT Ratio Sodium Potassium 3.5 Chloride Carbon Dioxide Anion Gap BUN Creatinine Est Cr Clr Drug Dosing Est GFR ( Amer) Est GFR (Non-Af Amer) BUN/Creatinine Ratio Glucose Calcium Magnesium Total Bilirubin AST ALT Alkaline Phosphatase Total Protein Albumin Globulin Albumin/Globulin Ratio Lipase Folate POC Stool Occult Blood Positive A Blood Type Antibody Screen (1) GI bleed GI bleed type/associated pathology: unspecified gastrointestinal hemorrhage type Qualified Code(s): K92.2 - Gastrointestinal hemorrhage, unspecified
[2019-07-30 19:38] LABS: Hematocrit (blood only) 30.6 % (37-47)
[2019-07-31] MEDS: SODIUM CHLORIDE 0.9% 1000ML 1,000 ML IV SCH ×2 (00:28→12:05)
[2019-07-31 00:33] LABS: Hematocrit (blood only) 28.1 % (37-47); Hemoglobin 9.3 g/dL (12.0-16.0)
[2019-07-31 06:22] LABS: Hematocrit (blood only) 28.1 % (37-47); Hemoglobin 9.3 g/dL (12.0-16.0)
[2019-07-31 06:58] LABS: BUN Creatinine Ratio 9.9 (10-20); Calcium 7.9 mg/dl (8.5-10.1); Creatinine Clr Calc Pharmacy 136.8 ml/min; Est GFR (African American) 127.4
--- NOTE | 2019-07-31 07:33 | Gastroenterology Progress Note ---
Date of Service July 31, 2019 Assessment & Plan (1) Status post colonoscopy: 63 year old female w/ history of Crohn's disease on Delzicol, status post laparoscopic right hemicolectomy on 09/22/2017 for ascending colon cancer who presents through the ED for evaluation of rectal bleeding, syncopal event at home following colonoscopy w/ polypectomy 07/29/19 She is hemodynamically stable, prepped for repeat colonoscopy w/ report of clear, liquid stool this AM and cessation of rectal bleeding around 2200 - NPO - Plan for colonoscopy this AM Thank you for allowing us to participate in the care of this patient. Please call with any acute changes, questions or concerns. Please see addendum below with additional recommendation from my supervising physician. Supervising Physician Co-Signing Physician Notes I have seen and examined the patient and discussed the management with GUSTVAO Chance. 63 yo fm admitted post polypectomy with hematochezia. Prepped overnite. Colonoscopy for further evaluation today. Subjective Pt was seen and evaluated Chart reviewed HGB stable Other AM labs pending Completed bowel prep Initially had rectal bleeding but notes around 2200 this stopped Has been passing liquid, clear stools since No abd pain No nausea, vomiting No CP, SOB Review of Systems Gastrointestinal: + cramping, + change in bowel habits and + blood in stools; no abdominal pain, no early satiety, no vomiting, no coffee ground emesis, no hematemesis and no melena Physical Exam Constitutional: well developed and well nourished; no acute distress Respiratory: normal respiratory effort, lungs clear to auscultation Cardiovascular: RRR, no murmur, no edema Gastrointestinal (Abdomen): normal bowel sounds, soft, nontender, no hepatosplenomegaly Skin: no rashes, warm and dry Results & Data Vital Signs (Past 12 Hours) Vital Signs Temp Pulse Pulse Resp BP Pulse Ox 07/31/19 07:14 37.2 C 67 18 130/75 95 07/31/19 03:49 36.8 C 75 17 132/73 95 07/31/19 00:00 79 07/30/19 23:15 37.2 C 78 18 117/63 93 07/30/19 20:00 74
--- NOTE | 2019-07-31 07:49 | Anesthesiology Consultation ---
Date of Service July 31, 2019 Assessment & Plan (1) Encounter for pre-operative examination: Chart Review Chart Review: Acceptable Risk for Surgery and Patient NOT seen in Pre Admission Testing Consults Requested none History Surgery Operation Date: 07/31/19 08:00 Proposed Procedures p Colonoscopy Dr. Kalani Uriarte M.D. Height/Weight Height: 5 ft 3 in Weight: 75.7 kg Allergies Allergy/AdvReac Type Severity Reaction Status Date / Time No Known Allergies Allergy Verified 07/30/19 03:17 Medications Home Medications Medication Instructions Recorded Confirmed Last Taken Valium 5 mg PO HS PRN 07/30/19 07/30/19 Unknown hydrochlorothiazide 12.5 mg PO DAILY 07/30/19 07/30/19 Unknown mesalamine 3 tab PO DAILY 07/30/19 07/30/19 Unknown omeprazole 20 mg PO DAILY 07/30/19 07/30/19 Unknown Active Medications Generic Name Dose Route Start Last Admin Trade Name Freq PRN Reason Stop Dose Admin Diazepam 5 mg 07/30/19 08:24 07/30/19 23:37 Valium PO 5 mg HS PRN Administration Insomnia Sodium Chloride 1,000 mls @ 125 mls/hr 07/30/19 09:45 07/31/19 00:28 Nss 1000ml IV 08/29/19 09:44 125 mls/hr .Q8H EITAN Administration Mesalamine 800 mg 07/30/19 09:15 07/30/19 20:09 Delzicol PO 08/29/19 09:14 800 mg TID EITAN Administration Multivitamins/Minerals 1 tab 07/30/19 09:00 07/30/19 09:54 Multivitamin W/ Minerals Tab PO 08/29/19 08:59 1 tab QAM EITAN Administration Pantoprazole Sodium 40 mg 07/30/19 09:00 07/30/19 09:54 Protonix PO 08/29/19 08:59 40 mg DAILY EITAN Administration Thiamine HCl 100 mg 07/30/19 09:00 07/30/19 09:54 Vitamin B-1 PO 08/29/19 08:59 100 mg QAM EITAN Administration NPO Date Last Intake of Fluids: 07/30/19 Time Last Intake of Fluids: 23:45 Last Intake of Fluids Comment: [email or web address] Date Last Intake of Solids: 10/08/19 Time Last Intake of Solids: 20:45 Past Medical History Medical History Cancer COLON CANCER- BOWEL RESECTION NO CHEMO OR RADIATION Crohns disease Past Surgical History Surgical History History of bowel resection History of laparoscopy RIGHT OVARY REMOVED Hx of colonoscopy Social History Smoking Status: Former smoker Hx Alcohol Use: Yes Alcohol type: beer alcohol intake frequency: 3 or more drinks per day Hx Substance Use: No substance use type: does not use Physical Exam Vital Signs Last Vital Signs Temp 37.2 C 07/31/19 07:14 Pulse 67 07/31/19 07:14 Resp 18 07/31/19 07:14 BP 130/75 07/31/19 07:14 Pulse Ox 95 07/31/19 07:14 Testing Laboratory Results 07/31/19 06:00 07/31/19 06:00 PT 10.3 Seconds (9.0-12.0) 07/30/19 02:52 INR 1.0 (0.9-1.1) 07/30/19 02:52 APTT 23.2 Seconds (21.0-31.0) 07/30/19 02:52 Blood Type O Positive 07/30/19 02:52 Antibody Screen NEGATIVE 07/30/19 02:52
[2019-07-31] MEDS ORDERED: LIDOCAINE HCL 2% 2 ML VIAL/AMP(20MG/ML) INFIL ONE (07:56)
[2019-07-31] MEDS ORDERED: PROPOFOL IV EMULSION 10 MG/ML 20 ML VIAL IV ONE ×2 (07:56→08:17)
[2019-07-31] MEDS ORDERED: ATROPINE SULFATE 0.1 MG/ML 10ML SYR IV PRN (07:59)
[2019-07-31] MEDS ORDERED: ePHEDrine sulfate 50 MG/ML AMP IV PRN (07:59)
[2019-07-31] MEDS ORDERED: FOLIC ACID 1 MG TAB PO SCH (09:00)
[2019-07-31] MEDS ORDERED: THIAMINE HCL 100 MG TAB PO SCH (09:00)
--- NOTE | 2019-07-31 09:03 | GI REPORT ---
Patient Name: Ann Maldonado Procedure Date: 07/31/2019 7:38 AM Date of : 1955 Admit Type: Inpatient Age: 63 Gender: Female Attending MD: Norma Uriarte M.d. Procedure: Colonoscopy Providers: Norma Uriarte M.d. Referring MD: Abril Rivera DO Indications: Hematochezia post colonoscopy done on 07/29/19 at [facility] Medicines: Propofol per Anesthesia, Lidocaine Complications: No immediate complications. Estimated Blood Loss: Estimated blood loss was minimal. Procedure: Pre-Anesthesia Assessment: - Patient identification and proposed procedure were verified prior to the procedure by the physician, the nurse and the anesthesiologist. The procedure was verified in the pre-procedure area. - Prior to the procedure, a History and Physical was performed, and patient medications, allergies and sensitivities were reviewed. The patient's tolerance of previous anesthesia was reviewed. - The risks and benefits of the procedure and the sedation options and risks were discussed with the patient. All questions were answered and informed consent was obtained. - ASA Grade Assessment: II - A patient with mild systemic disease. After I obtained informed consent, the scope was passed under direct vision. Throughout the procedure, the patient's blood pressure, pulse, and oxygen saturations were monitored continuously. The scope was introduced through the anus and advanced to the ileocolonic anastomosis. The colonoscopy was performed with moderate difficulty. The quality of the bowel preparation was adequate to identify polyps 6 mm and larger in size. Findings: The examined colon appeared normal. A few (approximately 5-6) sessile, non-bleeding polyps were found in the transverse, sigmoid colon, and descending colon. The polyps were 2 to 4 mm in size - these were not biopsied given the indication for this scope is for a suspected post polypectomy bleed. A single small localized pigmented spot without bleeding was found in the transverse colon. Presumably, this is the site that was bleeding. An empiric hemostatic clip was successfully placed. There was no bleeding at the end of the procedure. The area was successfully injected with 1 mL of a 1:10,000 solution of epinephrine for drug delivery. Despite the prior colonsocopy report from 07/29/19 stating clips were placed- no clips were visualized on today's exam other than the one placed on today's scope. A clean based ulcer was found in the descending colon. A clearn based ulcer in the sigmoid colon. Internal hemorrhoids were found during retroflexion. Impression: - The entire examined colon is normal. - Many 2 to 4 mm, non-bleeding polyps in the sigmoid colon, in the descending colon and in the transverse colon. - A single non-bleeding colonic angioectasia. SKIP. Injected. - Mucosal ulceration. - Mucosal ulceration. - Internal hemorrhoids. Recommendation: - Return to Dr. Rivera in the office for consideration of escalation of biologic therapy and further colonsocopy recall. - Slowly advance diet. Norma Uriarte M.D. Norma Uriarte M.d. 07/31/2019 9:03:02 AM This report has been signed electronically. Note Initiated On: 07/31/2019 7:38 AM Number of Addenda: 0 I attest to the content of the Intraoperative Record and orders documented therein, exceptions below {[id number]}
[2019-07-31] MEDS: MESALAMINE 400 MG CAPDR PO SCH ×2 (10:08→13:39)
[2019-07-31] MEDS: CEROVITE ADV FORMULA TAB PO SCH (10:09)
[2019-07-31] MEDS: PANTOprazole 40 MG TAB PO SCH (10:09)
[2019-07-31] MEDS: THIAMINE HCL 100 MG TAB PO SCH (10:09)
[2019-07-31] MEDS ORDERED: POTASSIUM CHLORIDE 10 MEQ TABCR PO ONE (10:45)
--- NOTE | 2019-07-31 10:57 | Hospitalist Progress Note ---
Date of Service delayed entry date of service as noted below July 31, 2019 Assessment & Plan (1) GI bleed: ASSESSMENT AND PLAN: This is a 63-year-old female who had a colonoscopy with polypectomy done yesterday, presents with rectal bleed. 1. GI bleed presented with hematochezia, s/p Colonoscopy day before admission repeat Colonoscopy performed: Impression: - The entire examined colon is normal. - Many 2 to 4 mm, non-bleeding polyps in the sigmoid colon, in the descending colon and in the transverse colon. - A single non-bleeding colonic angioectasia. SKIP. Injected. - Mucosal ulceration. - Mucosal ulceration. - Internal hemorrhoids. Recommendation: - Return to Dr. Rivera in the office for consideration of escalation of biologic therapy and further colonsocopy recall. - Slowly advance diet. -- follow up with GI closely, in 1-2 weeks 2. Syncope. -- passed out when she had large bloody bowel movement at home, mostly vasovagal. -- no arrythmia on telemetry -- BP stable 3. Crohn's disease. Continue home mesalamine. 4. Gerd. Continue omeprazole. DISPOSITION: d/c home ff up with PCP and GI as outlined in discharge instructions Subjective ff up for GI bleed s/p Colonoscopy patient comfortable, in good spirits denies abdominal pain, further hematochezia denies chest pain, dyspnea, palpitations, dizziness no other symptoms states she is ready and would like to be discharged Review of Systems Review of Systems: All systems reviewed & are unremarkable except as noted in HPI & below Physical Exam Physical Exam: .General- oriented x 3, not in distress, speaks in sentences with no effort or accessory muscle use Eyes- anicteric Neck- no JVD Lungs- clear breath sounds bilaterally, no crackles, no wheezing Heart- normal rate, regular rhythm; no murmurs Abdomen- normal bowel sounds, nondistended, soft, nontender Extremities- no pretibial edema, no calf tenderness Neuro- alert, oriented x 3; no gross focal neurologic deficits Skin- warm & dry Results & Data Vital Signs (Past 12 Hours) Vital Signs Temp Pulse Pulse Resp BP BP Pulse Ox 07/31/19 08:56 68 20 122/61 98 07/31/19 08:45 72 18 119/55 L 99 07/31/19 08:43 109/58 L 07/31/19 08:37 70 16 115/54 L 94 07/31/19 08:32 74 20 88/45 L 99 07/31/19 08:00 68 07/31/19 07:47 36.7 C 67 16 133/75 97 07/31/19 07:14 37.2 C 67 18 130/75 95 07/31/19 03:49 36.8 C 75 17 132/73 95 07/31/19 00:00 79 07/30/19 23:15 37.2 C 78 18 117/63 93 (1) GI bleed GI bleed type/associated pathology: unspecified gastrointestinal hemorrhage type Qualified Code(s): K92.2 - Gastrointestinal hemorrhage, unspecified
[2019-07-31 11:01] LABS: Ferritin 89.2 ng/ml (8-388)
[2019-07-31 13:09] LABS: Hematocrit (blood only) 28.9 % (37-47); Hemoglobin 9.5 g/dL (12.0-16.0)
--- NOTE | 2019-07-31 13:22 | Anesthesiology Progress Note ---
Date of Service July 31, 2019 Anesthesia Post Procedure Vital Signs Vital Signs: Temp Pulse Pulse Resp BP BP Pulse Ox 07/31/19 11:15 36.9 C 63 16 127/68 98 07/31/19 08:56 68 20 122/61 98 07/31/19 08:45 72 18 119/55 L 99 07/31/19 08:43 109/58 L 07/31/19 08:37 70 16 115/54 L 94 07/31/19 08:32 74 20 88/45 L 99 07/31/19 08:00 68 07/31/19 07:47 36.7 C 67 16 133/75 97 07/31/19 07:14 37.2 C 67 18 130/75 95 07/31/19 03:49 36.8 C 75 17 132/73 95 07/31/19 00:00 79 07/30/19 23:15 37.2 C 78 18 117/63 93 07/30/19 20:00 74 07/30/19 19:07 36.7 C 74 20 129/70 99 07/30/19 15:18 36.9 C 66 22 108/57 L 95 07/30/19 14:53 74 Pain Intensity Throat: Pain Intensity: 8 Abdomen: Pain Intensity: 2 Transfer of Care Handoff Completed per policy Notes Mental Status: alert / awake / arousable Patient Amnestic to Procedure: Yes Nausea / Vomiting: adequately controlled Pain: adequately controlled Airway Patency, RR, SpO2: stable & adequate BP & HR: stable & adequate Hydration State: stable & adequate Anesthetic Complications: no major complications apparent and Pt Satisfied with anesthetic care
--- NOTE | 2019-08-01 19:30 | Discharge Summary ---
Date of Service August 01, 2019 Admission HPI Per Admitting Provider CHIEF COMPLAINT: Rectal bleed. HISTORY OF PRESENT ILLNESS: This is a 63-year-old female with past medical history significant for Crohn's disease, not had a flare in the last 30 years; was on Remicade in the past, but currently on mesalamine. She also has history of colon cancer, status post right hemicolectomy couple of years ago and she gets frequent screenings with colonoscopies. She had a colonoscopy about 1 or 1-1/2 months ago and the biopsy showed some precancerous polyps, advised for 6 month followup, but she decided to go early and she had an EGD and colonoscopy done yesterday> Egd showed small diverticulum which was dilated, but otherwise unremarkable. Colonoscopy showed multiple polyps which were resected and she was discharged home,yesterday afternoon. In the evening, she had a small blood per rectum thereafter she had some small clots, then she went to sleep, then in the middle of the night around 2:00 p.m., she woke up with large bloody bowel movement, and also she had an syncopal episode when she collapsed. Friend in the house helped her. No seizure activity. Then she decided to come to the ER. In the ER, her hemodynamics are stable. She did fine and thought the bleeding has stopped,and planned discharge her home. She had then had another episode of bright red per rectum, so we are called for admission. Currently resting comfortably and hemodynamically stable. Hemoglobin is 11.8. She has mild abdominal discomfort. Denies any nausea, vomiting. No chest pain or shortness of breath. No cough. During last episode of bleeding in the house, she suddenly passed out. Her friend was in the house. He helped her, not significantly on the floor for a long time. She came back and there was no seizure activity, no biting of tongue and in the EMS also, her blood pressure running on the lower side. Currently hemodynamically stable. Denies any headache or blurred vision. No earache, no runny nose, no sore throat, no difficulty swallowing. Ambulates okay. Normal bladder movements. No rash. ALLERGIES: No known drug allergies. PAST MEDICAL HISTORY: As mentioned above. PAST SURGICAL HISTORY: Multiple colonoscopies, laparoscopic partial colectomy. MEDICATIONS: The patient is on omeprazole 20 mg p.o. daily, mesalamine 1.2 grams 3 tablets daily, Valium 5 mg p.o. b.i.d., aspirin, hydrochlorothiazide 12.5 mg p.o. daily, Maalox p.r.n. FAMILY HISTORY: Significant for mother had breast cancer, diverticulitis. Father had heart problems, mitral valve repair. Brother has hypertension. SOCIAL HISTORY: , currently living alone. Quit smoking in 1990. Smoked 1.5 packs a day. Alcohol, drinks daily. No drug use. REVIEW OF SYMPTOMS: As per HPI. Rest of review of systems negative. Admission Exam Per Admitting Provider PHYSICAL EXAMINATION: GENERAL: The patient is of moderate build, not in acute distress. VITAL SIGNS: Temperature 37, pulse 80, respiratory rate 14, blood pressure 102/63, oxygen 94% room air. HEENT: No pallor, no icterus. Pupils equal, round, reactive to light. NECK: No lymphadenopathy, no carotid bruit. CARDIOVASCULAR: S1, S2 heard, regular rate and rhythm, no murmur, no gallop. RESPIRATORY SYSTEM: Normal AP diameter. No accessory muscle use. No wheezing, no crackles. ABDOMEN: Soft, bowel sounds present. Nontender, nondistended. CENTRAL NERVOUS SYSTEM: Cranial nerves II-XII grossly nonfocal. EXTREMITIES: No edema, no erythema. Principal Diagnosis LOWER GI, STATUS POST COLONOSCOPY Discharge Exam General- oriented x 3, not in distress, speaks in sentences with no effort or accessory muscle use Eyes- anicteric Neck- no JVD Lungs- clear breath sounds bilaterally, no crackles, no wheezing Heart- normal rate, regular rhythm; no murmurs Abdomen- normal bowel sounds, nondistended, soft, nontender Extremities- no pretibial edema, no calf tenderness Neuro- alert, oriented x 3; no gross focal neurologic deficits Skin- warm & dry Discharge Data Allergies Allergy/AdvReac Type Severity Reaction Status Date / Time No Known Allergies Allergy Verified 07/30/19 03:17 Consultations 07/30/19 05:09 ED Decision to Admit Stat 07/30/19 08:24 Consult Gastroenterology Routine Procedures Performed Operation Date: 07/31/19 08:00 Actual Procedures p Colonoscopy Hemostasis(Not Applicable) - Norma Uriarte M.D. Hospital Course (1) GI bleed: ASSESSMENT AND PLAN: This is a 63-year-old female who had a colonoscopy with polypectomy done yesterday, presents with rectal bleed. 1. GI bleed presented with hematochezia, s/p Colonoscopy performed a day before admission repeat Colonoscopy performed: Impression: - The entire examined colon is normal. - Many 2 to 4 mm, non-bleeding polyps in the sigmoid colon, in the descending colon and in the transverse colon. - A single non-bleeding colonic angioectasia. SKIP. Injected. - Mucosal ulceration. - Mucosal ulceration. - Internal hemorrhoids. Recommendation: - Return to Dr. Austin in the office for consideration of escalation of biologic therapy and further colonsocopy recall. - Slowly advance diet. --Resume usual medications for Crohn's disease -- follow up with GI closely, in 1-2 weeks, for possible medication adjustment 2. Syncope. -- passed out when she had large bloody bowel movement at home, mostly vasovagal -- no arrythmia on telemetry -- BP stable 3. Crohn's disease. Continue home mesalamine. 4. Gerd. Continue omeprazole. 5. Hypokalemia Prescribed potassium supplements Repeat BMP as outpatient and follow-up with PCP 6. Anemia Iron, folate, vitamin B12 within normal limits Hemoglobin decreased from 12-9 Repeat CBC and follow-up with primary care physician, further work-up as an outpatient DISPOSITION: d/c home ff up with PCP and GI as outlined in discharge instructions Case and plan of care discussed with patient in detail and at length All questions answered She is comfortable and agreeable, understanding the plan of care Total Time Total Time Spent Total Time Spent (In Minutes): 40 minutes Discharge Plan Discharge Items Patient Disposition: Home - Self-Care Reason For Visit: RECTAL BLEEDING, SYNCOPE Discharge Diagnosis: LOWER GASTROINTESTINAL BLEEDING Condition on Discharge: Good Activity: As commented below Activity Comment: NO HEAVY EXERTION UNTIL RE-EVALUATED BY PRIMARY CARE PHYSICIAN Lifting: Wait until after follow-up appointment Exercise/Sports: Wait until after follow-up appointment Driving/Machine Use: NO DRIVING UNTIL RE-EVALUATED BY PRIMARY CARE PHYSICIAN Non-emergency contact: Primary Care Provider and Provider Relations Manager Call non-emergency contact if: you have any medication questions, your symptoms worsen and you have a fever Follow-up/Referrals: Abril Austin [Physician] - Veronica Stock MD [Physician] - 08/04/19 10:00 am Diet: Heart Healthy and Low Fiber Addtl Attending Provider Instructions: PLEASE FOLLOW UP WITH PRIMARY CARE PHYSICIAN DR. CORONEL (ASSOCIATE OF DR. DANIEL) NEXT WEEK OUTLINED ABOVE. FOLLOW UP WITH DR. AUSTIN. THE CLINIC WILL BE CALLING YOU FOR THE APPOINTMENT. YOUR NEW MEDICATION IS POTASSIUM SUPPLEMENT: TWICE A DAY X 2 DAYS, THEN ONCE DAILY X 5 DAYS. DRINK PLENTY OF FLUIDS. CALL PRIMARY CARE PHYSICIAN OR RETURN TO THE ER IMMEDIATELY IF WITH WORSENING OF SYMPTOMS. Pending Studies at Discharge: No Stand-Alone Forms: My [facility] Medications and DC Order Prescriptions: New Certavite-Antioxidant 18-400 mg-mcg Tablet 1 tab PO QAM 30 Days Qty: 30 RF: 2 potassium chloride 10 mEq tablet extended release 10 meq PO UD 7 Days Qty: 36 RF: 0 Continued omeprazole 20 mg Capsule,Delayed Release(Dr/Ec) 20 mg PO DAILY RF: 0 Valium 5 mg 5 mg PO HS PRN (Reason: Insomnia) RF: 0 hydrochlorothiazide 12.5 mg 12.5 mg PO DAILY RF: 0 mesalamine 1,200 mg 3 tab PO DAILY RF: 0 Discharge Orders: Discharge Order (Routine); Ordered 07/31/19 Ordered By: Jos Cornejo Admission Data Admit Date/Time: 07/30/19 06:31 Attending Provider: Jos Cornejo Admit Provider: Gómez Villa Primary Care Provider: Jayne Daniel Other Providers: Gómez Villa ; Victor Manuel José ; Petty Cevallos ; Rosa Montalvo ; Akira Sanders ; Abril Austin ; Aryan Gay ; Radha Bill ; Colin Culver ; Enio Lemus ; Mara Alvarez ; Libra Melendez ; Candace Justin ; Norma Uriarte ; Minh Perez Other Interventions: Discharge Summary Assessment (RN) Last Done: 07/31/19 14:22 DC Date/Time DO NOT enter until pt leaves facility: 07/31/19 15:31
== END 2019-07-31 15:31 | disposition home or self-care (01) ==
LOC: ED 02:41 → 2S 05:58 → INTOOBSV 05:58 → 2S 07:10